=== PATIENT | male | born 2000 | race Caucasian/White ===

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

== ENCOUNTER 2022-05-13 09:49 | Emergency (ER) | payer MEDICAID, OTHER ==
[~2022-05-13] VITALS: Ht 172.7 cm; Wt 70.0 kg
[~2022-05-13 09:49] MED LIST: DOXY100T2 MT
[2022-05-13 09:54] VITALS: BP 116/65
[2022-05-13] MEDS ORDERED: BLOOD SUGAR DIAGNOSTIC STRIP TEST ONE (11:15)
[2022-05-13 13:35] LABS: CLARITY URINE CLOUDY (CLEAR); COLOR URINE YELLOW (YELLOW); KETONES URINE NEGATIVE (NEGATIVE); LEUKOCYTE ESTERASE URINE 3+ (NEGATIVE); NITRITE URINE NEGATIVE (NEGATIVE); OCCULT BLOOD URINE NEGATIVE (NEGATIVE); PH URINE 7.5 (4.5-8.0); PROTEIN URINE NEGATIVE (NEGATIVE); SPECIFIC GRAVITY URINE 1.017 (1.005-1.030)
[2022-05-16 04:07] LABS: NEISSERIA GONORRHOEAE NAA Positive (Negative)
== END 2022-05-13 15:48 | disposition left against medical advice (07) ==
LOC: ER 09:49
DX: R30.0 Dysuria (principal); F12.10 Cannabis abuse, uncomplicated
CPT/HCPCS: 81003; 82542; 87077; 87491; 87591; 99283

== ENCOUNTER 2022-05-20 06:14 | Emergency (ER) | payer MEDICAID ==
[~2022-05-20] VITALS: Ht 172.7 cm; Wt 74.7 kg
[2022-05-20 06:53] VITALS: BP 129/81
[2022-05-20 08:44] LABS: CLARITY URINE CLOUDY (CLEAR); COLOR URINE YELLOW (YELLOW); KETONES URINE NEGATIVE (NEGATIVE); LEUKOCYTE ESTERASE URINE 3+ (NEGATIVE); NITRITE URINE NEGATIVE (NEGATIVE); OCCULT BLOOD URINE TRACE (NEGATIVE); PROTEIN URINE TRACE (NEGATIVE); SPECIFIC GRAVITY URINE 1.021 (1.005-1.030)
[2022-05-20] MEDS ORDERED: PHEN-815 MT ×2 (08:47)
[2022-05-20] MEDS ORDERED: NITR-87 MT ×2 (08:47)
[2022-05-20] MEDS ORDERED: DOXY100T2 MT (09:15)
[2022-05-20] MEDS ORDERED: CEFTRIAXONE SODIUM 500 MG/VIAL IM ONE (09:15)
== END 2022-05-20 10:03 | disposition home or self-care (01) ==
LOC: ER 06:14
DX: A64 Unspecified sexually transmitted disease (principal)
CPT/HCPCS: 81003; 87077; 87086; 96372; 99283; J0696

== ENCOUNTER 2023-06-26 07:23 | Emergency (ER) | payer MEDICAID ==
[~2023-06-26] VITALS: Ht 177.8 cm; Wt 73.0 kg
[2023-06-26 07:34] VITALS: O2SAT 100
[2023-06-26] MEDS ORDERED: DOXY100C5 MT (08:57)
[2023-06-26] MEDS: CEFTRIAXONE SODIUM 500MG VIAL IM ONE (09:39)
[2023-06-26 09:43] VITALS: BP 113/80; PULSE 68; RESP 16; TEMP 98.9
[2023-06-26 09:58] LABS: CLARITY URINE CLOUDY (CLEAR); COLOR URINE YELLOW (YELLOW); GLUCOSE URINE NEGATIVE (NEGATIVE); KETONES URINE NEGATIVE (NEGATIVE); NITRITE URINE NEGATIVE (NEGATIVE); OCCULT BLOOD URINE NEGATIVE (NEGATIVE); PH URINE 6.5 (4.5-8.0); PROTEIN URINE NEGATIVE (NEGATIVE); SPECIFIC GRAVITY URINE 1.025 (1.005-1.030)
[2023-06-26 09:59] LABS: LEUKOCYTE ESTERASE URINE 2+ (NEGATIVE)
[2023-06-26 10:09] LABS: BACTERIA URINE TRACE; SQUAMOUS EPITHELIAL CELL URINE NONE SEEN /lpf (RARE/1+)
[2023-06-26 10:10] LABS: RBC URINE 0-2 /hpf (0-2); WBC URINE 50-100 /hpf (0-2)
[2023-06-28 09:08] LABS: CHLAMYDIA TRACHOMATIS NAA Negative (Negative); NEISSERIA GONORRHOEAE NAA Positive (Negative)
== END 2023-06-26 10:05 | disposition home or self-care (01) ==
LOC: ER 07:23
DX: A64 Unspecified sexually transmitted disease (principal)
CPT/HCPCS: 99283; 87491; 87591; 81003; 87086; 96372; J0696

== ENCOUNTER 2023-08-15 20:11 | Emergency (ER) | payer MEDICAID ==
[~2023-08-15] VITALS: Ht 170.2 cm; Wt 62.0 kg
[~2023-08-15 20:11] MED LIST changes: +DOXY100C5 MT
[2023-08-15 20:39] VITALS: TEMP 98.2; O2SAT 99
[2023-08-15] MEDS ORDERED: ERYT1OIN6 LEFTEYE (23:05)
[2023-08-15 23:35] VITALS: BP 119/82; PULSE 65; RESP 17
== END 2023-08-15 23:36 | disposition home or self-care (01) ==
LOC: ER 20:11
DX: H10.9 Unspecified conjunctivitis (principal); F12.10 Cannabis abuse, uncomplicated
CPT/HCPCS: 99281; 99283